=== PATIENT | female | born 1985 | race Caucasian/White ===

== ENCOUNTER 2016-05-13 17:54 | Emergency (ER) | payer OTHER | END 2016-05-13 20:01 | disposition home or self-care (01) | LOC: ER 17:54 | DX: N39.0 Urinary tract infection, site not specified (principal); G80.9 Cerebral palsy, unspecified; Z79.899 Other long term (current) drug therapy; Z91.040 Latex allergy status; Z88.2 Allergy status to sulfonamides ==

== ENCOUNTER 2016-06-28 07:49 | Emergency (ER) | payer OTHER | END 2016-06-28 10:20 | disposition home or self-care (01) | LOC: ER 07:49 | DX: G40.409 Other generalized epilepsy and epileptic syndromes, not intractable, without status epilepticus (principal); Z79.899 Other long term (current) drug therapy; Z88.1 Allergy status to other antibiotic agents; Z91.040 Latex allergy status | CPT/HCPCS: 36415; 51701 ==

== ENCOUNTER 2016-06-29 10:17 | Emergency (ER) | payer OTHER | END 2016-06-29 11:08 | disposition home or self-care (01) | LOC: ER 10:17 | DX: L89.129 Pressure ulcer of left upper back, unspecified stage (principal); R62.50 Unspecified lack of expected normal physiological development in childhood; Z79.899 Other long term (current) drug therapy; Z88.1 Allergy status to other antibiotic agents; Z91.040 Latex allergy status ==